=== PATIENT | female | born 2000 | race Two or more races ===

== ENCOUNTER 2025-03-07 23:50 | Emergency (ER) | payer OTHER, SELFPAY ==
[2025-03-07 23:53] VITALS: BMI 22.3
[2025-03-07 23:57] VITALS: BP 134/58; PULSE 66; RESP 18; TEMP 36.8; O2SAT 100
[2025-03-08 00:55] LABS: HIV (1&2) Antibody Rapid Non-Reactive
--- NOTE | 2025-03-08 02:11 | EDNOTE_ITS ---
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 There was no known blood exposure. Limitations: no limitations Related Data Allergies Allergy/AdvReac Type Severity Reaction Status Date / Time No Known Allergies Allergy Verified 03/07/25 23:51 Review of Systems Review of Systems Systems Reviewed: All systems reviewed, normal except as documented Integumentary/Breasts Skin/Breast: Reports as per HPI and Reports skin pain Past Medical History Past Medical History CARDIAC: Negative Congestive Heart Failure RESPIRATORY: Negative Chronic Obstructive Pulmonary Disease (COPD) GENITOURINARY: Negative Renal Disease ENDOCRINE: Negative Diabetes Mellitus Type 1 or Diabetes Mellitus Type 2 Social History SMOKING STATUS: Never smoker ED Exam General Limitations: Present no limitations General appearance: Present alert, in no apparent distress and anxious (mild) Head Head exam: Present atraumatic Neck Neck exam: Present normal inspection, full ROM and trachea midline Chest Chest inspection: Present normal inspection and symmetric chest wall rise Neurological Exam Neurological exam: Present alert and oriented X3 Psychiatric Psychiatric exam: Present normal affect and anxious (mild) Skin Skin exam: Present warm, dry, intact and normal color Course Quality Measures none Orders Category Date Time Status HIV (1&2) Antibody Rapid Stat Lab 03/08/25 00:18 Completed Hepatitis B Surface Antigen Stat Lab 03/08/25 00:18 Completed Hepatitis C Antibody Stat Lab 03/08/25 00:18 Completed Vital Signs Vital signs: Vital Signs Temperature 98.2 F 03/07/25 23:57 Pulse Rate 66 03/07/25 23:57 Respiratory Rate 18 03/07/25 23:57 Blood Pressure 134/58 H 03/07/25 23:57 Pulse Oximetry (%) 100 03/07/25 23:57 Oxygen Delivery Method Room Air 03/07/25 23:57 O2 at 100% on RA and WNLs Skin / Abscess / Foreign Body MDM Narrative MDM Narrative:: 24F with no significant PMH presents to ED with needlestick injury at work after she accidentally poked herself after giving a subQ injection to another patient in the ED. There was no known blood exposure. Physical exam reveals well-appearing female. Patient is afebrile, alert, but mildly anxious. Source patient was still in ED and gave consent for testing. Similarly, patient gave consent for testing. 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 Patient's and source's HIV, hepB sAg and Hep C Ab were negative. Apprentice Cook given. Patient data External records reviewed:: [facility] previous records Clinical information provided by:: patient Social determinants that could affect healthcare access:: none Patient has the following chronic illnesses:: none How is presenting disease/condition affected by chronic disease/condition?: no chronic disease Evaluation data The following diagnostics were reviewed and interpreted by me:: lab results Lab and/or radiology exams considered but not ordered:: ordered Interpretation Summary: above Medications / Prescriptions Medications or Prescriptions considered but not ordered:: not ordered Medication administrations:: n/a Consultations Consultation(s) initiated? (list below): No Diagnosis Skin/Abscess Differential Diagnosis: abscess of skin or subcutaneous tissue, viral exanthem, dermatophytosis, urticaria, herpes zoster, allergic reaction to drug, cellulitis, eczema, insect bites, impetigo, contact dermatitis and other (needlestick injury ) Most likely diagnosis given after review of the tests above:: needlestick injury Admission Indicated Admission indicated?: not indicated Admission Request Was there a request for admission?: No Disposition Plan Disposition Plan: Discharge Discharge Attestation Discharge Attestation: The patient and all family members were given an opportunity to ask questions and understood the discharge instructions. Discharge instructions specifically effects, indications for sooner follow up or return to the emergency department, and the expected course of current diagnosis. Patient condition: Stable Discharge Plan Plan Patient Disposition: HOME (Self Care) Discharge Disposition comment: Stable Prescriptions/Referrals Referrals: No Primary/Family,Physician [Primary Care Provider] - In 1 week Problem List Clinical Impression: Needlestick injury accident Patient/Caregiver Discharge Instructions Education Materials: Staff Ed: [place] and Other [employer] Additional Instructions: Please follow-up with PCP within 24-48 hours and return immediately if symptoms worsen. Print Language: Nepalese Stand Alone Forms: Patient Portal Info Letter LEOLA/RANDY Supervising Physician SANDRA Supervising Physician: Dr. Farris
[2025-03-08 02:15] LABS: Hepatitis B Surface Antigen Non Reactive (Non React); Hepatitis C Antibody Non Reactive (Non React)
== END 2025-03-08 02:29 | disposition home or self-care (01) ==
PROVIDERS: Physician Assistant; Emergency Provider Emergency Medicine
DX: S61.239A Puncture wound without foreign body of unspecified finger without damage to nail, initial encounter (principal); W46.1XXA Contact with contaminated hypodermic needle, initial encounter; Y93.89 Activity, other specified; Y92.239 Unspecified place in hospital as the place of occurrence of the external cause; Y99.0 Civilian activity done for income or pay
CPT/HCPCS: 36415; 86703; 86803; 87340; 99281